=== PATIENT | female | born 1985 | race Caucasian/White ===

== ENCOUNTER 2025-03-26 00:29 | Day surgery (SDC) | payer OTHER, SELFPAY ==
--- OUTSIDE RECORDS SUMMARY | 2015-07-24 12:30 | XMS_ITS | Continuity of Care Document ---
Author Organization [facility] Address [address] [place] [address] [address] [place] [address] Phone Care Team Providers Care Director Of Hemophilia Name Role Phone Zhen STRICKLAND, OTR/L, Amy Unavailable Unavail able Procedures Procedure Date OT EVALUATION THERAPEUTIC EXERCISES FUNC ACTIVITY HOT/COLD PACK Advance Directives Directive Yes / No Effective Date File Name No Information Encounters Encounter Description Practice Location Reason(s) For Visit Diagnoses Date Provider Providers Copied on Encounter [facility], [address], [place], [place], [id number], [place] tel:[phone] [place] Pain in left wrist Zhen Reyes. [address] [facility], [address], [place], [address], [place]. tel:[phone] Referring Provider: Andrew Kang [address], [place], [address]. tel:[phone] Family History Family Member Type Diagnosis Age At Onset No Information Payers Payer name Insurance type Covered constitution party ID Authorjessicaa donellglenn(s) [facility] [id number] Social History Type Description Quantity Date Captured Comments Sex Female Smoking Status No Information Chief Complaint And Reason For Visit No Information Reason For Referral Reason For Referral No Information History Of Present Illness Encounter Date Complaint History Of Prese nt Illness No Information Functional Status Date Functional Assessmen t No Information Instructions Date Instruction Additional Infor mation No Information Assessments Type Assessment Date No Information Patient Care Teams Name Effective Dates (start - stop) Status Members No Information
--- NOTE | 2025-03-15 12:01 | SUR.PREOP ---
[facility] has started construction of its new state of the art ER which will open Spring 2026. With this, we anticipate parking may be a challenge for some our surgical patients and families. Parking spaces are limited but are available for all Surgical, obstetrics, and ER patients sharing this lot. If you arrive and find you are having a hard time finding a parking space, please note that we understand the challenges, please drive around the hospital and park near Hospital Entrance 1. When you enter this entrance, you can ask a volunteer to direct or take you back to the surgical waiting area to check in. We appreciate everyone?s understanding of these expected challenges while we build for your future. Report to the Outpatient Waiting Room, entrance under the green pavilion located off [address], at time _6am on date _03/26/25 . Planned Procedure Time: _730am .? Time changes happen often and if your time is changed the preop area will call you the afternoon before. - You and your visitor will be asked to self-screen and do not enter if you have any COVID symptoms. Please call surgeon if you need to reschedule. - A mask is optional within the hospital at this time. Patients may have clear liquids (water, carbonated beverages, clear teas, apple juice) until 3 hours prior to surgery with a maximum of 20 ounces. - No food from midnight until time of surgery and no smoking, or chewing tobacco (or any form of nicotine). No chewing gum, candy or mints. Take only the following medications with a SIP of water on the morning of surgery: __sertraline (Albuterol PRN)___ DO NOT STOP ANY OF YOUR OTHER PRESCRIPTION MEDICATIONS PRIOR TO SURGERY EXCEPT THE FOLLOWING Hold all vitamins and supplements for 3 days per anesthesiologist. Medications to discontinue per physician None____ Date to take last dose___n/a Please no make-up, nail serbian, hairspray, perfume, deodorant, or body powder the day of surgery.? - Jewelry must be removed prior to entering the operating room.? Rings and piercings that are not removed may be cut off. - The hospital will not accept responsibility for valuables.? - Please leave all valuables, including medications, at home the day of surgery. If you are going home after surgery, a licensed cdl bulk driver must drive you home.? - NO public transportation without another adult if you receive anesthesia. - We recommend that an adult stay with you for 24 hours following discharge. - We also recommend that you do not drive, make important decision, drink alcoholic beverages, or take any drugs that were not prescribed by your health care provider for at least 24 hours after your discharge time. Follow any additional instructions given to you from your surgeon. Telephone instructions given to __Linda and asked if any additional questions and then verbalized understanding. Patient advised to call surgeon office or pre surgery nurse liaison [phone] if any additional questions.
[2025-03-15 12:23] VITALS: BMI 25.7
[2025-03-26] VITALS (8 sets, daily range): BP systolic 90–113; BP diastolic 52–72; PULSE 60–79; RESP 10–16; TEMP 36.1–36.2; O2SAT 99–100; BMI 25.9
--- OUTSIDE RECORDS SUMMARY | 2025-03-26 00:31 | XMS_ITS | Encounter Summary ---
Author Organization [facility] Address [address] [place] [address] Care Team Providers Care Fire Alarm Operator Name Role Phone Dottie Rubio MD Primary Care Provider [phone]- [phone] Encounter Details Date Type Department Care Team (Late st Contact Info) Description 07/13/2022 Posh Eyest Message Enc [facility] Multispecialty Care - [facility] [address] [facility], [address] [place] [address] Kain Roy MD [address] [place] [address] MRI Orders Social History Tobacco Use Types Packs/Day Years Used Date Smoking Tobacco: Never Smokeless Tobacco: Never Alcohol Use Standard Drinks/Week Comments Yes 1.7 (1 standard drink = 0.6 oz p ure alcohol) social PHQ-2 Answer Date Recorded Patient Health Questionnaire-2 Score 0 06/21/2022 Comments Unknown Sex and Gender Information Value Date Recorded Sex Assigned at Not on file Legal Sex Female 6:23 PM CDT Gender Identity Not on file Sexual Orientation Not on file COVID-19 Exposure Response Date Recorded In the last 10 days, have yo u been in contact with someone who was confirmed or suspected to have Coronavirus/COVID-19? No / Unsure 06/21/2022 1:29 PM ROBOTIC TECHNICIAN documented as of this encounter Plan of Treatment Upcoming Encounters Date Type Department Care Team (Late st Contact Info) Description 06/18/2025 2:40 PM ROBOTIC TECHNICIAN Office Visit [facility] Multispecialty Care - [facility] [address] [facility], [address] [place] [address] Kain Roy MD [address] [place] [address] documented as of this encounter Visit Diagnoses Not on filedocumented in this encounter Care Teams Fire Alarm Operator Relationship Specialty Start Date End Date Dottie Rubio MD PCP - General FAMILY PRACTICE 12/17/21 documented as of this encounter
--- OUTSIDE RECORDS SUMMARY | 2025-03-26 00:31 | XMS_ITS | Clinical Summary ---
Author Organization [facility] Address [address], [place] [address] Phone Care Team Providers Care Retail Sales Vitamin Consultant Name Role Phone Provider, None Primary Care Provider Unavailabl e Allergies Active Allergy Reactions Criticality Noted Date Comments Lamotrigine Hives,Rash Medications ALPRAZolam (XANAX) 0.25 MG TabletIndicatio ns:once a day Indications: once a day Active clonazePAM (KLONOPIN) 0.5 MG Tablet Active Methylphenidate HCl (RITALIN LA) 20 MG CAPSULE SR 24 HRIndications:2 in am for 40am and 1 tab in the pm for 20mg equallying 60mg daily Indications: 2 in am for 40am and 1 tab in the pm for 20mg equallying 60mg daily Active glycopyrrolate (ROBINUL) 1 MG TabletIndicatio ns:once a day Indications: once a day Active DRYSOL 20 % Solution 5 Active FINACEA 15 % Gel 5 Active buPROPion SR (WELLBUTRIN SR) 150 MG TABLET SR 12 HR 5 Active VYVANSE 10 MG Capsule 5 Active venlafaxine (EFFEXOR-XR) 75 MG CAPSULE SR 24 HR 5 Active ARIPiprazole (ABILIFY) 5 MG Tablet Take 5 mg by mouth daily. Active TECFIDERA 240 MG CAPSULE DELAYED RELEASE TAKE ONE CAPSULE (240MG) ORALLY TWICE A DAY. MAY TAKE WITH FOOD. DO NOT CUT OR CHEW CAPSULES. DISCARD 90 DAYS AFTER OPENING. STORE IN ORIGIN 60 Cap 4 7 Active Active Problems Problem Noted Date Diagnosed Date Medication monitoring encounter 05/28/2015 Tremor 05/28/2015 Asthma Autistic disorder Bipolar disorder Relapsing remitting multiple sclerosis Family History Medical History Relation Name Comments No Known Problems Brother No Known Problems Father No Known Problems Maternal Grandfather No Known Problems Maternal Grandmother No Known Problems Mother No Known Problems Paternal Grandfather No Known Problems Paternal Grandmother Autism Sister CELE Relation Name Status Comments Brother Alive Father Alive Maternal Grandfather Maternal Grandmother Mother Alive Paternal Grandfather Paternal Grandmother Sister CELE Alive Social History Tobacco Use Types Packs/Day Years Used Date Smoking Tobacco: Never Smokeless Tobacco: Never Tobacco Cessation:Counseling Given: Yes Alcohol Use Standard Drinks/Week Comments Yes 0 (1 standard drink = 0.6 oz pur e alcohol) RARELY Sexually Active Control Partners Comments Yes Male Comments No Sex and Gender Information Value Date Recorded Sex Assigned at Not on file Legal Sex Female 9:34 PM CDT Gender Identity Not on file Sexual Orientation Not on file Last Filed Vital Signs Vital Sign Reading Time Taken Comments Blood Pressure 120/80 12/05/2015 8:23 AM CDT Pulse 85 12/05/2015 8:23 AM CDT Temperature 35.7 C (96.2 F) 12/05/2015 8:23 AM CDT Respiratory Rate - - Oxygen Saturation 95% 12/05/2015 8:23 AM CDT Inhaled Oxygen Concentration - - Weight 61.7 kg (136 lb) 12/05/2015 8:23 AM CDT Height 154.9 cm (5' 1) 12/05/2015 8:23 AM CDT Body Mass Index 25.7 12/05/2015 8:23 AM CDT Plan of Treatment Health Maintenance Due Date Last Done Comments Hepatitis C Virus (HCV) Screening 1987 TdaP Immunization 1987 Hepatitis B Immunization (1 of 3 - 19+ 3-dose series) 09/16/2006 Pneumococcal Immunization Co mbined (1 of 2 - PCV) 09/16/2006 Pap Smear 09/16/2008 Human Papillomavirus (HPV) Immunization (1 - 3-dose SCDM series) 09/16/2014 Cervical Cancer Screening (CCS) 09/16/2017 HPV/Cotest 09/16/2017 Influenza Immunization (#1) 2025 SARS-COV-2 Immunization (2023-25 season) 2025 Respiratory Syncytial Virus (RSV) Immunization (Adult) (1 - 1-dose 75+ series) 09/16/2062 Meningococcal Immunization (ACWY) Aged Out No longer eligible based on patient's age to complete this topic Rotavirus Immunization Aged Out No lo nger eligible based on patient's age to complete this topic Insurance [facility] Care Teams Retail Sales Vitamin Consultant Relationship Specialty Start Date End Date Provider, None [place] PCP - General 05/28/15
--- OUTSIDE RECORDS SUMMARY | 2025-03-26 00:31 | XMS_ITS | Encounter Summary ---
Author Organization [facility] Address [facility] [place] [address] Care Team Providers Care Instructional Coach Name Role Phone Dottie Rubio MD Primary Care Provider +1- [phone] Encounter Details Date Type Department Care Team (Late st Contact Info) Description 12/01/2023 Rhythm NewMediat Message Enc [facility] Multispecialty Care - [facility] [address] [facility], [address] [place] [phone] Kain Roy MD [address] [place] [address] IVF Beginnings Social History Tobacco Use Types Packs/Day Years Used Date Smoking Tobacco: Never Smokeless Tobacco: Never Comments:Smoked as a teen. I was dumb. Alcohol Use Standard Drinks/Week Comments Yes 1 (1 standard drink = 0.6 oz pure alcohol) Social drinker. Maybe have a drink or 2 on the weekends. PHQ-2 Answer Date Recorded Patient Health Questionnaire-2 Score 0 06/21/2022 Comments Unknown Sex and Gender Information Value Date Recorded Sex Assigned at Not on file Legal Sex Female 6:23 PM CDT Gender Identity Not on file Sexual Orientation Not on file documented as of this encounter Progress Notes * Aminah Joshua MA - 12/01/2023 1:57 PM CDT Informed pt. Of Dr. Benavides recommendations documented in this encounter Plan of Treatment Upcoming Encounters Date Type Department Care Team (Late st Contact Info) Description 06/18/2025 2:40 PM FILLER MACHINE OPERATOR Office Visit [facility] Multispecialty Care - [facility] [address] [facility], [address] [place] [address] Kain Roy MD [address] [place] [address] documented as of this encounter Visit Diagnoses Not on filedocumented in this encounter Care Teams Instructional Coach Relationship Specialty Start Date End Date Dottie Rubio MD PCP - General FAMILY PRACTICE 12/17/21 documented as of this encounter
--- OUTSIDE RECORDS SUMMARY | 2025-03-26 00:31 | XMS_ITS | Clinical Summary ---
Author Organization [facility] Address [address] [place] [address] Care Team Providers Care Supervisor Knitting Name Role Phone Dottie Rubio MD Primary Care Provider +1- [phone] Allergies Active Allergy Reactions Criticality Noted Date Comments Lamotrigine Rash,Hives,Redness High 07/07/2015 Medications dimethyl fumarate (TECFIDERA) 240 MG CAPSULE DELAYED RELEASE capsule 2 Active doxycycline monohydrate 100 MG capsule Take 100 mg by mouth daily with breakfast. 2 Active Glycopyrrolate 2 MG Tab Take 1 tablet by mouth daily. Active OXcarbazepine (TRILEPTAL) 300 MG tablet Take 0.5 tablets (150 mg total) by mouth once. Active albuterol sulfate HFA 108 (90 Base) MCG/ACT inhaler INHALE 2 PUFFS EVERY 4 HOURS NEEDED FOR WHEEZING OR SHORTNESS OF BREATH 3 Active ALPRAZolam (XANAX) 0.25 MG tablet Indications: once a day Active methylphenidate LA (RITALIN LA) 20 MG 24 hr capsule Take 1 capsule (20 mg total) by mouth every morning. Active dimethyl fumarate (TECFIDERA) 240 MG CAPSULE DELAYED RELEASE capsuleIndicatio ns:MS (multiple sclerosis) take 1 capsule by mouth 2 times a day 180 capsule 3 4 Active Additional Information Patient not taking.Reported on 12/18/2024 sertraline (ZOLOFT) 25 MG tablet Take 2 tablets (50 mg total) by mouth daily. 4 Active Azelaic Acid 15 % gel Apply topically as needed. 5 Active Clindamycin Phos-Benzoyl Perox 1.2-3.75 % Gel 5 Active Docusate Sodium (DSS) 100 MG Cap TAKE 1 CAPSULE (100 MG) BY MOUTH TWICE A DAY WITH GLASS OF WATER 5 Active lurasidone (LATUDA) 20 MG tablet 5 Active NIFEdipine ER (ADALAT CC) 30 MG 24 hr tablet Take 1 tablet (30 mg total) by mouth daily. 5 10/18/19 26 Active BOTOX 100 units injection 4 Active MV-Min-Fe Fum-FA-DHA ( MULTI +DHA) 27-0.8-250 MG Cap Take by mouth Active sertraline (ZOLOFT) 100 MG tablet 5 Active sertraline (ZOLOFT) 50 MG tablet TAKE 1 TABLET BY MOUTH EVERY DAY EVERY EVENING Active lisdexamfetamine (VYVANSE) 40 MG capsule Take 1 capsule (40 mg total) by mouth daily. Active Active Problems Problem Noted Date Diagnosed Date MS (multiple sclerosis) 12/20/2022 Encounters Date Type Department Care Team Description 01/21/2025 Telephone [facility] Multispecialty Care - [address], [address] [place] [address] Kain Roy MD Results from Last 3 Months Family History Medical History Relation Comments Basal cell carcinoma Adoptive mother Autism Half-sister Relation Status Comments Adoptive mother Alive Father Alive Half-sister Alive Mother Social History Tobacco Use Types Packs/Day Years Used Date Smoking Tobacco: Never Smokeless Tobacco: Never Comments:Smoked as a teen. I was dumb. Alcohol Use Standard Drinks/Week Comments Not Currently 2 (1 standard drink = 0.6 oz pure alcohol) Social drinker. Maybe have a drink or 2 on the weekends. PHQ-2 Answer Date Recorded Patient Health Questionnaire-2 Score 0 06/21/2022 Comments No Sex and Gender Information Value Date Recorded Sex Assigned at Not on file Legal Sex Female 6:23 PM CDT Gender Identity Not on file Sexual Orientation Not on file Last Filed Vital Signs Vital Sign Reading Time Taken Comments Blood Pressure 119/80 12/18/2024 2:26 PM CDT Pulse 84 12/18/2024 2:26 PM CDT Temperature 37 C (98.6 F) 12/18/2024 2:26 PM CDT Respiratory Rate 16 12/18/2024 2:26 PM CDT Oxygen Saturation 100% 12/18/2024 2:26 PM CDT Inhaled Oxygen Concentration - - Weight 63.5 kg (140 lb) 12/18/2024 2:26 PM CDT Height 152.4 cm (5') 12/18/2024 2:26 PM CDT Body Mass Index 27.34 12/18/2024 2:26 PM CDT Plan of Treatment Upcoming Encounters Date Type Department Care Team (Late st Contact Info) Description 06/18/2025 2:40 PM SACK FILLER Office Visit [facility] Multispecialty Care - [facility] [address] [facility], [address] [place] [address] Kain Roy MD [address] [place] [address] Health Maintenance Due Date Last Done Comments Annual Physical 09/16/1990 DTaP, Tdap and Td Vaccines ( 1 - Tdap) 09/16/2006 Hepatitis B Vaccines (1 of 3 - 19+ 3-dose series) 09/16/2006 HPV Vaccines (1 - 3-dose SCD M series) 09/16/2014 Cervical Cancer Screening Pa p with HPV Testing (Age 30 to 64) Every 5 Years 09/16/2017 PHQ-2 (Physician [place]) 06/06/2024 COVID-19 Vaccine (3 - 2024-2 6 season) 2025 09/05/2020, 08/01/2020 Influenza Adult (#1) 2025 Cervical Cancer Screening Pa p Smear (Age 30 to 64) Every 3 Years 03/07/2026 03/07/2023 Cervical Cancer Screening wi th HPV 03/07/2026 Hepatitis C Completed 06/25/2023 Hepatitis A Vaccines Aged Out No long er eligible based on patient's age to complete this topic Meningococcal B Vaccine Aged Out No l onger eligible based on patient's age to complete this topic Meningococcal Vaccine Aged Out No jerry baljit eligible based on patient's age to complete this topic Pneumococcal Vaccine: Pediatrics (0 to 5 Years) and At-Risk Patients (6 to 49 Years) Aged Out No longer eligible b ased on patient's age to complete this topic RSV Immunizations Under 20 Months Aged Out No longer eligible b ased on patient's age to complete this topic Procedures Procedure Name Priority Date/Time Associated Diagnosis Comments MRI THOR SPINE WWO CON Routine 01/21/2025 12:00 AM CDT MS (multiple sclerosis) MRI BRAIN WWO CON Routine 01/17/2025 12: 00 AM CDT MS (multiple sclerosis) MRI CERV SPINE WWO CON Routine 01/15/2025 12:00 AM CDT MS (multiple sclerosis) HEPATITIS C ANTIBODY W/RFX TO HCV RNA Routine 06/25/2023 9:43 AM SACK FILLER from Last 3 Months or Most Recently Relevant to Health Maintenance Results * MRI THOR SPINE WWO CON (01/21/2025 12:00 AM CDT) Anatomical Region Laterality Modality Spine Magnetic Resonan ce 01/21/2025 us Kain Roy MD MRI Final Res ult * MRI BRAIN WWO CON (01/17/2025 12:00 AM CDT) Anatomical Region Laterality Modality Head Magnetic Resonan ce 01/17/2025 us Kain Roy MD MRI Final Res ult * MRI CERV SPINE WWO CON (01/15/2025 12:00 AM CDT) Anatomical Region Laterality Modality Spine Magnetic Resonan ce 01/15/2025 us Kain Roy MD MRI Final Res ult * HEPATITIS C ANTIBODY W/RFX TO HCV RNA (06/25/2023 9:43 AM SACK FILLER) HEPATITIS C AB NON-REACT BALAJI NON-REACT BALAJI [employer] [facility] Comment: HCV antibody was non-reactive. There is no laboratory evidence of HCV infection. In most cases, no further action is required. However, if recent HCV exposure is suspected, a test for HCV RNA (test code 92649) is suggested. For additional information please refer to http://education.Queryly/faq/GWL60r4 (This link is being provided for informational/ educational purposes only.) 06/25/2023 9:43 AM SACK FILLER 06/25/2023 9:48 AM SACK FILLER Narrative [employer] - KELBY ORDERS - 06/29/2023 10:29 AM SACK FILLER FASTING:YES FASTING: YES Resulting Agency Comment Performing Organization Information: Site ID: [id number] Name: [employer] Address: [address] [place] [id number] Director: Aaron Luong MD us Kain Roy MD LABORATORY Final Res ult [employer] Patricia DUNN [employer] [facility] [id number] [place] [address] from Last 3 Months or Most Recently Relevant to Health Maintenance Insurance [employer] [facility] Care Teams Supervisor Knitting Relationship Specialty Start Date End Date Dottie Rubio MD PCP - General FAMILY PRACTICE 12/17/21
--- OUTSIDE RECORDS SUMMARY | 2025-03-26 00:31 | XMS_ITS | Encounter Summary ---
Author Organization [facility] Address [facility] [place] [address] Care Team Providers Care Senior Quality Assurance Engineer Name Role Phone Dottie Rubio MD Primary Care Provider +1- [phone] Encounter Details Date Type Department Care Team (Late st Contact Info) Description 08/31/2023 MyChart Message [facility] [address] [facility], [address] [place] [phone] Kain Roy MD [address] [place] [address] MRI Disc Social History Tobacco Use Types Packs/Day Years [...] on file documented as of this encounter Plan of Treatment Upcoming Encounters Date Type Department Care Team (Late st Contact Info) Description 06/18/2025 2:40 PM MILK RECEIVER TANK TRUCK Office Visit [facility] Mult[facility]pecialty Care - [facility] [address] [facility], [address] [place] [address] Kain Roy MD [address] [place] [address] documented as of this encounter Visit Diagnoses Not on filedocumented in this encounter Care Teams Senior Quality Assurance Engineer Relationship Specialty Start Date End Date Dottie Rubio MD PCP - General FAMILY PRACTICE 12/17/21 documented as of this encounter
--- OUTSIDE RECORDS SUMMARY | 2025-03-26 00:31 | XMS_ITS | Encounter Summary ---
Author Organization [facility] Address [facility] [place] [address] Care Team Providers Care Addresser Name Role Phone Dottie Rubio MD Primary Care Provider +1- [phone] Encounter Details Date Type Department Care Team (Latest Contact Info) Description 07/07/[address] [facility] [address] [facility], [address] [place] [address] Kain Roy MD [address] [place] [address] Medication Refill Social History Tobacco Use Types Packs/Day Years [...] st Contact Info) Description 06/18/2025 2:40 PM WIND TURBINE BLADE REPAIR TECHNICIAN Office Visit [facility]pec[facility] Care - [facility] [address] [facility], [address] [place] [address] Kain Roy MD [address] [place] [address] documented as of this encounter Visit Diagnoses Not on filedocumented in this encounter Care Teams Addresser Relationship Specialty Start Date End Date Dottie Rubio MD PCP - General FAMILY PRACTICE 12/17/21 documented as of this encounter
--- OUTSIDE RECORDS SUMMARY | 2025-03-26 00:32 | XMS_ITS | Clinical Summary ---
Author Organization [facility] at the [facility] [place] Address [address] [place] [address] Care Team Providers Care Target Network Analyst Name Role Phone Dottie Rosa MD Primary Care Provider [phone] Allergies Active Allergy Reactions Criticality Noted Date Comments Lamotrigine Fever,Redness,Hives,Rash High 07/07/2015 Medications vit 43-[id number]-d escobar 27mg iron- 800 mcg-250 mg capsule Take by mouth Active albuterol HFA (ProAir HFA) 90 mcg/actuation inhaler Inhale 2 puffs every 4 (four) hours as needed for wheezing or shortness of breath 18 g 1 5 07/19/19 26 Active sertraline (ZOLOFT) 100 mg tablet 5 Active azelaic acid 15 % gel Apply topically as needed 5 Active clindamycin-chanel zoyl peroxide 1.2 %(1 % base) -3.75 % gel with pump 5 Active docusate sodium (COLACE) 100 mg capsule TAKE 1 CAPSULE (100 MG) BY MOUTH TWICE A DAY WITH GLASS OF WATER 60 capsule 5 Active lisdexamfetamin e (VYVANSE) 40 mg capsule Take 1 capsule (40 mg total) by mouth daily 5 Active lurasidone (LATUDA) 20 mg tablet Take 1 tablet (20 mg total) by mouth daily 5 Active Active Problems Problem Noted Date Diagnosed Date care following delivery 10/04 Overview (10/16/2024): 10/14/24, POD#1 (Da Silva) S/p pCS which was complicated by delayed intra-abdominal hemorrhage requiring take-back exploratory laparotomy EBL 2455 cc (355 cc from original CS), Hgb 11.9 > 9.8 > 10.0 > 7.7 >> 10.9 > 10.2 S/p 3u pRBC, 1u Plt, 1u FFP 2100 cc of clot and blood evacuated from abdominal cavity during EL A(+), Rubella immune Vital signs reviewed and notable for elevated blood pressures and bradycardia EKG: sinus bradycardia, avoid beta blockers if possible See PreE problem Elevated D-dimer: 5900, LE duplex US ordered MP asthma: continue daily scheduled inhalers, aggressive IS Anxiety/Depression - continue zoloft RR Multiple Sclerosis, Optic neuritis - has plan to restart medications with neurologist, for flares IV Solu-Medrol Tolerating PO - close monitoring for ileus Guillen in place with more than adequate UOP - plan void trial today MOF: undecided, baby getting donor milk in the NICU MOC: declines, IVF VTE ppx: The patient has the following MAJOR risk factors PPH (EBL >/=1000) requiring blood transfusion or procedure (D&C or IR) and prolonged labor OR antepartum admission >72h immediately prior to delivery and the following MINOR risk factors BMI 30-39, delivery, preeclampsia, and age >/= 35. enoxaparin 40 mg daily ordered for VTE prophylaxis. Dispo: Continue routine postoperative care. 10/15/24, POD#2 (LIBERTAD) S/p pCS, complicated by intra-abdominal hemorrhage and exploratory laparotomy EBL 2455 cc Hgb 11.9 > 9.8 > 10.0 > 7.7 >> 10.9 > 10.2 > 9.4 S/p 3u pRBC, 1u Plt, 1u FFP Tolerating PO iron A(+), Rubella immune Vital signs reviewed and normal - see other problem for BPs Elevated D-dimer: 5900, LE duplex US negative MP asthma: continue daily scheduled inhalers, aggressive IS Anxiety/Depression - continue zoloft RR Multiple Sclerosis, Optic neuritis - has plan to restart medications with neurologist, for flares IV Solu-Medrol Tolerating PO - close monitoring for ileus Guillen d/c yesterday, voiding spontaneously, passing flatus frequently MOF: formula, baby getting donor milk in the NICU MOC: declines, IVF VTE ppx: The patient has the following MAJOR risk factors PPH (EBL >/=1000) requiring blood transfusion or procedure (D&C or IR) and prolonged labor OR antepartum admission >72h immediately prior to delivery and the following MINOR risk factors BMI 30-39, delivery, preeclampsia, and age >/= 35. enoxaparin 40 mg daily ordered for VTE prophylaxis. Dispo: Continue routine postoperative care. 10/15/2024, POD# 3 (LIBERTAD): Pt doing well - desires discharge home today VSS, Afebrile - see other problem for BPs EBL 2455 cc; hgb has stabilized at 9.1, tolerating PO iron Elevated D-dimer: negative dopplers, no further work up at this time. Reviewed VTE/DVT warning signs with patient. Received enoxaparin 40 mg daily while inpatient MP asthma: discharge home with scheduled inhalers RR Multiple Sclerosis: has appointment with neurologist this week to initiate plan Anxiety/Depression: continue sertraline, plan mood check at post op visit Normal exam: tolerating PO, spontaneously voiding, passing flatus, no BM, ambulating independently MOF: formula MOC: declines, IVF Dispo: desires discharge home. discharge education provided: reviewed s/s of infection, VTE/DVT, bleeding, pre eclampsia and depression/anxiety. Follow up 2 days for BP check, 1 week for incision/mood check and 6 week for routine visit. Acute blood loss anemia 10/14/2024 Overview (10/14/2024): See problem. Post-operative bleeding requiring take-back for exploratory laparotomy. Blood products transfused. CANDICE (acute kidney injury) 10/14/2024 Overview (10/14/2024): In the setting of PreE w/ SF, hypotension, hypovolemia, PPH Acute bronchitis due to other specified organism s 10/03/2024 Anxiety and depression 05/22/2024 Assessment & Plan (10/03/2024 8:42 PM CDT): Chronic Stable Cont celexa Mass of right axilla 01/05/2024 Assessment & Plan (01/05/2024 2:13 PM CDT): Patient states there since she was a teenager but it has started to flare up recently. US ordered. Does not appear to be infected at this time. 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 Assessment & Plan (12/14/2019 2:20 PM CDT): Stable Cont robinul Moderate persistent asthma without complication 07/08/2017 Assessment & Plan (06/01/2023 5:44 AM RECRUITING MANAGER): Chronic Stable Con brezri ADD (attention deficit disorder) without hyperac tivity 06/21/2017 Assessment & Plan (06/01/2023 5:44 AM RECRUITING MANAGER): Chronic Stable Cont ritalin Assessment & Plan (12/14/2019 2:19 PM CDT): Stable Cont ritalin Assessment & Plan (04/08/2019 5:59 PM RECRUITING MANAGER): Stable Cont vyvanse Multiple sclerosis 10/30/2013 Overview (09/16/2017): Description: 28 y/o F w/ h/o optic neuritis and lesions on MRI c/w a new diagnosis of MS. Impression: Today Linda has expressed that she does not believe she holds the diganosis. We discussed her testing/symptoms in detail and why this supports the diagnosis. After discussing these things we turned to her treatment options. At this point she would like to try Copaxone. Because patient feels comfortable with injections and does not want to actively prevent at this time in her life, I believe this is a good choice for her. Enrollment form completed today. At the end of the visit she seemed to agree more with her diagnosis. 10/30/13 Assessment & Plan (09/16/2020 10:42 AM CDT): Patient remains on Tecfidera for immunosuppressant treatment of her multiple sclerosis. Contemporary MRI demonstrates no active demyelination. She will continue on Tecfidera as previously prescribed and I will see her back in 1 year. Assessment & Plan (06/24/2020 9:27 AM RECRUITING MANAGER): Patient is a former patient of [facility] being treated for multiple sclerosis with dimethyl fumarate. She continues on dimethyl fumarate 240 mg b.i.d. with good tolerability and only occasional migratory paresthesia as her continuing symptoms. She previously had optic neuritis when her diagnosis was originally established. She exhibits a normal neurological examination. I have renewed her dimethyl fumarate as previously prescribed. She has not had an MRI since 2018 so I will be obtaining an MRI brain with and without contrast to screen for her current status of primary demyelination. It will also be done to rule out potential complicating lesions from her immunosuppression. Will also obtain a CBC, AST, and ALT to screen for potential neutropenia and liver dysfunction associated with continued dimethyl fumarate usage. I will see her back in the office in 3 months time for reassessment. Anaclitic depression 10/30/2013 Overview (09/16/2017): Description: Currently on sertraline. Patient has a psychiatrist. Impression: From patient's description this is poorly controlled. 10/30/13 Anxiety 10/25/2013 Optic neuritis 10/24/2013 Overview (09/16/2017): Description: OS, began 09/2013. Had central scotoma, NL OCT. Abnormal brain scan 10/24/2013 Resolved Problems Problem Noted Date Diagnosed Date Resolved Date premature rupture of membranes (PPROM) with onset of labor after 24 hours of rupture in third trimester, antepartum 10/10/2024 0 10/19/2024 Overview (10/12/2024): 10/10/2024 1152 (CZ) 39 yo @ 33w4d who presents with PPROM. Her is complicated by IVF , anxiety and depression (Zoloft), MP Asthma (PRN albuterol, AMA (last EFW 28%), RR multiple sclerosis, optic neuritis, and velamentous cord insertion. Mild range blood pressures noted on admission. A+, Rubella Immune Hgb: 11.9 Reactive tracing GBS Unknown: Collected BMZ x1 dose Latency antibiotics initiated. SVE 0.5/0/-3 Reports some cramping with contractions, reports as mild. Continue expectant management until goal range of 34 weeks. Neonatology consult placed 10/11/2024 0830 (CZ) VSS, afebrile Periods of Category 2 tracing with prolonged Late decels after a contractions. Resolves to category 1 with position changes. Reviewed with Dr. Rose, plan to order BPP. GBS unknown: collected 10/10 BMZ x2 Latency antibiotics continue SVE: Deferred Denies cramping/contractions. Magnesium and Nifedipine held - see other problem. Plan for primary @ 34 weeks. 10/09/2024, 1000 (JF): Pt doing well overall, feeling increased anxiety secondary to situation - hydroxyzine ordered for PRN Hgb: 11.9 > 9.8 - no bleeding, pt reports pink tinged fluid occasionally Repeat CBC and coags at noon wellbeing: BPP (10/11) 6/10, (/) 8/8, continuous monitoring - periods of minimal, no decelerations Pt requesting to shower and take walk - discussed overall reassurance with BPP. Ok to shower and with reactive NST can consider 10 -15 min walk GBS unknown Continue latency antibiotics SVE: deferred, denies contractions Continue plan for pCS tomorrow at 0830 - NPO at midnight, restart MgSO4 at 0630 Severe pre-eclampsia in third trimester 10/10/2024 01/02/2025 Overview (10/16/2024): 10/10/2024 (CZ) Sustained severe range blood pressures noted. Pulse 56 - hydralazine protocol ordered. Repeat blood pressure before spotting moderate range. Magnesium initiated 4 g bolus 2 g maintenance Nifedipine 30 mg XL initiated Labs: Plt 126, CR 1.05, Uric Acid 7.6, PCR 178.9 Ordered daily 10/11/2024 (CZ) VSS, afebrile Patient reported shortness of breath and chest heaviness overnight. Magnesium and Nifedipine on hold. Vitals remain stable. Labs: Plt 126 > 177, CR 1.05 Ordered daily 10/12/2024, (JF): VSS - MR BP x 1 this morning, otherwise all normotensive. Low threshold to restart PO medication Plan to restart MgSO4 tomorrow morning or sooner if indicated Labs: LFTs normal, Cr: 1.05 > 1.0. Continue daily Asymptomatic 10/14/2024, POD#1 (Avinash) Severe PreE with evidence of pulmonary edema on 10/13 AM, see other notes for further details With blood product transfusions, close monitoring of volume status S/p Lasix 40 mg and then 20 mg Current anti-hypertensive regimen: 30 mg XL nifedpine Last spottin/10 afternoon with hydralazine Labs: Plt: 141 > 188 > 137 > 118 > 133 Cr: 1.0 > 1.4 > 1.3 > 1.19 LFTs: / > 48/29 > 69/38 Magnesium held in the setting of hemorrhage, pulmonary edema 10/15/2024, POD#2 (JF): BPs largely normotensive this AM, MR x 1 Asymptomatic Nifedipine XL 30 mg daily Last spot treatment: 10/13 - see above Labs Plt: 141 > 188 > 137 > 118 > 133 > 176 Cr: 1.0 > 1.4 > 1.3 > 1.19 > 1.10 LFTs: 30/25 > 48/29 > 69/38 > 36/22 Magnesium held in the setting of hemorrhage, pulmonary edema - s/p Lasix 40 mg and 20 mg , POD#3 (JF): BPs normotensive Asymptomatic Nifedipine XL 30 mg daily Labs: normal Plt: 204 Cr: 1.08 LFTs 36/24 33 weeks gestation of 10/10/2024 10/19/2024 Abnormal glucose affecting 09/06/2024 10/19/2024 Overview (09/06/2024): 1 hr (08/31/24): 143 Plan: [] Wants to proceed with 1-2 weeks of fingerstick checks instead of 3 hr gtt, plans to discuss with OB 4/18 Assessment & Plan (09/06/2024 3:32 PM CDT): 1 hr (08/31/24): 143 Plan: [] Wants to proceed with 1-2 weeks of fingerstick checks instead of 3 hr gtt, plans to discuss with OB 4/18 Multiple sclerosis affecting in third trimester 06/21/2024 10/19/2024 Overview (08/02/2024): Type: Relapsing remitting multiple sclerosis. Diagnosed: 2013 Last flare: 2013 at diagnosis Typical flare symptoms: optic neuritis Neurologist: Kain Roy, Last visit: 06/2023, Next visit: 07/06/24 Current regimen: Prior to on dimethyl fumarate (started in 2013), which was discontinued prior to starting infertility treatments in November 2023 S/p counseling Plan: [] Serial growth ultrasounds every 4 weeks starting at 24 weeks [] Close follow up with neurology this and [] Anesthesia consultation 3rd trimester Assessment & Plan (10/04/2024 10:29 AM CDT): Type: Relapsing remitting multiple sclerosis. Diagnosed: 2013 Last flare: 2013 at diagnosis Typical flare symptoms: optic neuritis Neurologist: Kain Roy, Last visit: 06/2023, Next visit: 07/06/24 Current regimen: Prior to on dimethyl fumarate (started in 2013), which was discontinued prior to starting infertility treatments in November 2023 S/p counseling Plan: [] Serial growth ultrasounds every 4 weeks starting at 24 weeks [] Close follow up with neurology this and [] Anesthesia consultation 3rd trimester Assessment & Plan (09/06/2024 3:31 PM CDT): Plan: [] Serial growth ultrasounds every 4 weeks starting at 24 weeks [] Close follow up with neurology this and [] Anesthesia consultation 3rd trimester Assessment & Plan (08/02/2024 1:40 PM RECRUITING MANAGER): Plan: [] Serial growth ultrasounds every 4 weeks starting at 24 weeks [] Close follow up with neurology this and [] Anesthesia consultation 3rd trimester RESOLVED 08/02/24 - Suspected vasa previa affecting 06/21/2024 10/19/2024 Overview (08/02/2024): S/p counseling RESOLVED 08/02/2024 Assessment & Plan (08/02/2024 1:39 PM RECRUITING MANAGER): S/p counseling RESOLVED 08/02/2024 Velamentous insertion of umb ilical cord in second trimester 06/21/2024 10/04/2024 Overview (08/02/2024): We discussed that a velamentous cord insertion can be associated with IUGR and rarely, distress, delivery, and retained placenta. However the largest studies have not shown any association with adverse outcome when found in isolation. PLAN: -Serial growth ultrasounds per multiple sclerosis plan Assessment & Plan (08/02/2024 1:39 PM RECRUITING MANAGER): PLAN: -Serial growth ultrasounds per multiple sclerosis plan In vitro fertilization 06/21/202406/21 Overview (06/21/2024): In vitro fertilization (IVF) or assisted reproductive technologies (ART) comprise about 1-2% of pregnancies. risks associated with IVF include miscarriage, congenital anomalies specifically cardiac defects, placental disorders, gestational diabetes, section, delivery, growth restriction, and stillbirth. Plan: [x] ASA 81 mg at 12 weeks [] Specialized anatomic survey at 18-22 weeks - incomplete views today [] echocardiogram at 20-22 weeks (completed at [facility]) - scheduled [] 3rd trimester growth ultrasound [] Weekly testing at 36 weeks [] Consider risk reducing induction of labor at 39 weeks Supervision of high risk pre gnancy in second trimester 05/22/2024 10/19/2024 Overview (09/06/2024): [x] Co-management vs. [] Full M Care; [] Red Team [x] Blue Team Referring Provider: Sarah Betancur [phone] [] or Medicare Insurance [x] Dating Criteria: MIGUEL:11/24/24 [] Labs: Rh [A+], Ab [Neg], Rubella [Imm], HIV [Neg], HepBSAg [NR], HepBSAb [not done], HepBCAb [not done], RPR [NR], Hep C [NR], Varicella [not done], GC/CT [not done] [] Aneuploidy Screening: [] Carrier Screening: [] Hgb electrophoresis: [x] CBC/Hgb: 13.9/41.2/209 [] Early 1hr GTT (if indicated): A1c: 5.1 on 05/26/24 [x] UCx: negative [] Pap: [] LD ASA (if indicated): [] EPDS [ ]; PNBHS referral (if indicated): 2nd Trimester [x] Anatomy ultrasound: [] CBC/1hr gtt at 24-28wks: [] Rhogam at 28 wks (if Rh neg): A+, N/A 3rd Trimester [] CBC/HIV/RPR/T&S: [] GBS: [] GC/CT (if indicated): [] testing: weekly at 36 weeks (IVF, VCI) Counseling [] MOD: Anticipate at term [] Place of delivery: [facility] with primary OB [] Epidural: [] Accepts Blood Products: [] Stop ASA: [] MOC: [] Method of feeding: [] Electronic Wirer (specifically which provider): provided [phone] 09/06/2024 [] PP Depression Discussed: [] PP visits scheduled: Vaccines [] Flu Shot (Feb-May): [] COVID vaccine: [] Tdap (27-36wks): [] RSV vaccine (32-36wks): [] PP HPV vaccine counseling (<=26 yo): Assessment & Plan (10/04/2024 10:33 AM CDT): We will continue co-management with you and see her back in 4 weeks with a growth scan. Assessment & Plan (09/06/2024 3:30 PM CDT): 3rd Trimester [] CBC/HIV/RPR/T&S: [] GBS: [] GC/CT (if indicated): [] testing: weekly at 36 weeks (IVF, VCI) Counseling [] MOD: Anticipate at term [] Place of delivery: [facility] with primary OB resulting from in vitro fertilization 05/22/2024 10/19/2024 Overview (08/02/2024): In vitro fertilization (IVF) or assisted reproductive technologies (ART) comprise about 1-2% of pregnancies. risks associated with IVF include miscarriage, congenital anomalies specifically cardiac defects, placental disorders, gestational diabetes, section, delivery, growth restriction, and stillbirth. Plan: [x] ASA 81 mg at 12 weeks [x] Specialized anatomic survey at 18-22 weeks [x] echocardiogram at 20-22 weeks (completed at [facility]) - WNL 07/27 [] Growth ultrasounds per multiple sclerosis plan [] Weekly testing at 36 weeks [] Consider risk reducing induction of labor at 39 weeks Assessment & Plan (10/04/2024 10:31 AM CDT): In vitro fertilization (IVF) or assisted reproductive technologies (ART) comprise about 1-2% of pregnancies. risks associated with IVF include miscarriage, congenital anomalies specifically cardiac defects, placental disorders, gestational diabetes, section, delivery, growth restriction, and stillbirth. Plan: [x] ASA 81 mg at 12 weeks [x] Specialized anatomic survey at 18-22 weeks [x] echocardiogram at 20-22 weeks (completed at [facility]) - WNL 07/27 [] Growth ultrasounds per multiple sclerosis plan [] Weekly testing at 36 weeks [] Consider risk reducing induction of labor at 39 weeks Assessment & Plan (09/06/2024 3:31 PM CDT): Plan: [x] ASA 81 mg at 12 weeks [x] Specialized anatomic survey at 18-22 weeks [x] echocardiogram at 20-22 weeks (completed at [facility]) - WNL 07/27 [] Growth ultrasounds per multiple sclerosis plan [] Weekly testing at 36 weeks [] Consider risk reducing induction of labor at 39 weeks Assessment & Plan (08/02/2024 1:40 PM RECRUITING MANAGER): Plan: [x] ASA 81 mg at 12 weeks [x] Specialized anatomic survey at 18-22 weeks [x] echocardiogram at 20-22 weeks (completed at [facility]) - [facility] 07/27 [] Growth ultrasounds per multiple sclerosis plan [] Weekly testing at 36 weeks [] Consider risk reducing induction of labor at 39 weeks Advanced maternal age, primi , antepartum 05/21/2024 10/19/2024 Overview (06/21/2024): Risks of AMA include increased risk of genetic aneuploidy, miscarriage, preeclampsia, gestational diabetes, delivery, and delivery. PLAN: NIPT per primary OB Assessment & Plan (10/04/2024 10:32 AM CDT): Risks of AMA include increased risk of genetic aneuploidy, miscarriage, preeclampsia, gestational diabetes, delivery, and delivery. PLAN: NIPT per primary OB Well adult exam 05/03/2023 06/22/2024 Sore throat 01/27/2022 06/22/2024 Assessment & Plan (02/01/2022 6:20 AM CDT): Secondary to injury Is better No signs of injury Medication monitoring encounter 06/24/2020 06/22/2024 Assessment & Plan (09/16/2020 10:42 AM CDT): Patient has undergone CBC AST and ALT which are normal upon report reviews in screening for potential neutropenia and liver dysfunction associated with continued Tecfidera dosing. Assessment & Plan (06/24/2020 9:28 AM RECRUITING MANAGER): I will obtain a CBC, AST, and ALT for screening of potential neutropenia and liver dysfunction associated with continued dimethyl fumarate usage. In addition I will check an MRI of the brain to screen for her current activity of primary demyelination and to exclude alternate lesions which can be associated with complications from immunosuppression. Irregular menses 03/22/2019 08/02/2024 Assessment & Plan (04/08/2019 5:59 PM RECRUITING MANAGER): Order labs Refer to manager gyn Decreased libido 03/22/2019 08/02/2024 Assessment & Plan (04/08/2019 5:59 PM RECRUITING MANAGER): Order labs Refer to manager gyn Head revolving around 10/30/20132024 Overview (09/16/2017): Description: Present daily for the last several years. This is her biggest complaint at this time. No work up has been done at this time. Impression: Will do trial of meclazine per patient's request. Due to her description of her vertigo, I think that evaluation by ENT would be reasonable to ensure there is not an inner ear problem related to the vertigo. Consider vestibular rehab. 10/30/13 Blurring of visual image 10/30/2013 Overview (09/16/2017): Impression: Not related to her ON. Improved with glasses. I have asked her to talk with her body finisher about her options regarding bifocals since her feels wearing her normal glasses causes increased dizziness for her near vision. 10/30/13 Bronchial asthma 10/24/2013 08/02/2024 Immunizations Immunization Administration Dates Next Due Influenza, Unspecified 03/06/2024(Deferr ed: Patient Refused),03/06/2023(Deferred: Patient Refused),03/06/2022(Deferred: Patient Refused),03/06/2021(Deferred: Patient Refused) Pfizer SARS-CoV-2 Monovalent Vaccination (12+ Yrs) PURPLE 09/05/2020,08/01/2020 Surgical History Surgery Date Site/Laterality Comments ORAL SURGERY wisdom tooth and molars LASIK 11/20/2021 Medical History Medical History Date Comments Personal history of other me ntal and behavioral disorders History of bipolar disorder - (Added by ALANA Conv) Personal history of other me ntal and behavioral disorders History of attention deficit hyperactivity disorder - (Added by ALANA Conv) MS (multiple sclerosis) Asthma ADHD (attention deficit hype ractivity disorder) Hyperhidrosis Anxiety Depression Autoimmune disease Family History Medical History Relation Name Comments No Known Problems Brother 1 No Known Problems Brother 2 No Known Problems Father Skin cancer Mother Autism Sister 1 No Known Problems Sister 2 Breast cancer Neg Hx Colon cancer Neg Hx Ovarian cancer Neg Hx Pancreatic cancer Neg Hx Prostate cancer Neg Hx Uterine cancer Neg Hx Relation Name Status Comments Brother 1 Alive Brother 2 Alive Father Alive Mother Alive Sister 1 Alive Sister 2 Alive Social History Tobacco Use Types Packs/Day Years Used Date Smoking Tobacco: Never Smokeless Tobacco: Never Tobacco Cessation:Counseling Given: Not Answered Alcohol Use Standard Drinks/Week Comments Yes 0 (1 standard drink = 0.6 oz pur e alcohol) socially Social Connection and Isolation Panel Answer Date Recorded In a typical week, how many times do you talk on the phone with family, friends, or neighbors? Three times a week 10/10/2024 How often do you get togethe r with friends or relatives? Three times a week 10/10/2024 How often do you attend chur or quaker services? Never 10/10/2024 Do you belong to any clubs o r organizations such as sikhism groups, unions, fraternal or athletic groups, or school groups? No 10/10/2024 How often do you attend meet ings of the clubs or organizations you belong to? Never 10/10/2024 Are you , , di vorced, , never , or living with a partner? 10/10/2024 AUDIT-C Answer Date Recorded Q1: How often do you have a drink containing alcohol? Never 01/05/2024 Q2: How many drinks containi ng alcohol do you have on a typical day when you are drinking? Patient does not drink Q3: How often do you have si x or more drinks on one occasion? Never 01/05/2024 Overall Financial Resource Strain (CARDIA) Answe r Date Recorded How hard is it for you to pa y for the very basics like food, housing, medical care, and heating? Not hard at all 10/10/2024 PHQ-2 Answer Date Recorded PHQ-2 Total Score (If total score is 3 or more points, staff should administer the PHQ-9) 0 10/10/2024 Hunger Vital Sign Answer Date Recorded Within the past 12 months, y ou worried that your food would run out before you got the money to buy more. Never true 10/11/19 25 Within the past 12 months, t he food you bought just didn't last and you didn't have money to get more. Never true 10/10/2024 PRAPARE - Transportation Answer Date Re corded In the past 12 months, has l ack of transportation kept you from medical appointments or from getting medications? No 12/2024 In the past 12 months, has l ack of transportation kept you from meetings, work, or from getting things needed for daily living? No 10/10/2024 Eldorado Depression Scale Answer Date Recorded Eldorado Depression Scale Total 8 12/21/2024 The thought of harming myself has occurred to me . Never 12/21/2024 PHQ-9 Answer Date Recorded PHQ-9 Total Score 0 10/10/2024 Housing Stability Vital Sign Answer Clement e Recorded In the last 12 months, was t here a time when you were not able to pay the mortgage or rent on time? No 10/10/2024 Number of Times Moved in the Last Year Not on fi le 10/10/2024 At any time in the past 12 m [facility], were you homeless or living in a detention (including now)? No 10/10/2024 Personal Safety Answer Date Recorded Have you ever been in or are you currently in a harmful physical or emotional relationship or is someone making you feel afraid or unsafe? Patient unable to answer 10/10/2024 Comments No Sex and Gender Information Value Date Recorded Sex Assigned at Not on file Legal Sex Female 7:42 PM RECRUITING MANAGER Gender Identity Female 11/18/2020 6:40 AM CDT Sexual Orientation Straight 11/18/2020 6: 40 AM CDT Obstetrics History Para Term AB IAB SAB Ectopic Multiple Livin g Live Births 1 1 0 1 0 0 0 0 0 1 1 Date Outcome GA Total Labor Labor/2nd/3rd Weight Sex Type Anes PTL Ines A1 A5 Name Clin 2024 34w 0d 0h 02m 0h 02m 2.06 kg (4 lb 8.7 oz) M C-Sec tion Spinal Livin g 3 6 BoyTif Patricia Ayon MD Delivery Location:[facility] Main C ampus (MHE L AND D PROCEDURE) Comments Age of 1st cycle: 15 Last Filed Vital Signs Vital Sign Reading Time Taken Comments Blood Pressure 120/78 12/21/2024 1:36 PM CDT Pulse 83 10/18/2024 9:52 AM CDT Temperature 36.7 C (98 F) 10/18/2024 9:26 AM CDT Respiratory Rate 20 10/18/2024 9:26 AM CDT Oxygen Saturation 97% 10/18/2024 9:52 AM CDT Inhaled Oxygen Concentration - - Weight 64 kg (141 lb 3.2 oz) 12/21/2024 1:36 PM CDT Height 154.9 cm (5' 0.98) 12/21/2024 1:36 PM CD T Body Mass Index 26.69 12/21/2024 1:36 PM CDT Plan of Treatment Health Maintenance Due Date Last Done Comments DTaP/Tdap/Td Vaccine (1 - Tdap) 09/16/1998 Varicella Vaccines (1 of 2 - 13+ 2-dose series) 09/16/2000 Hepatitis B Screening 09/16/2005 Pneumococcal vaccine <65 (1 of 2 - PCV) 09/16/2006 HPV Vaccines (1 - 3-dose SCD M series) 09/16/2014 Cervical Cancer Screening 03/07/2024 03/07/2023, 07/2022 Covid-19 Vaccine (3 - 2024-2 6 season) 2025 09/05/2020, 08/01/2020 Influenza Vaccine (#1) 2025 Regular Well Visit/Exam 18-64 03/19/2025 03/19/2024, 03/07/2023 Depression Screening 12/21/2025 12/21/2024, 10/10/2024, 10/10/2024, Additional history exists Hepatitis C Screening Completed 05/26/2024 Procedures Procedure Name Priority Date/Time Associated Diagnosis Comments HEPATITIS C ANTIBODY Routine 05/26/2024 9:18 AM RECRUITING MANAGER Encounter for supervision of normal in first trimester, unspecified PAP AND HIGH RISK HPV, REFLEX TO GENOTYPING Routine 03/07/2023 10:26 AM CDT Encounter for well woman exam with routine gynecological exam from Last 3 Months or Most Recently Relevant to Health Maintenance Results * Hepatitis C antibody Blood (05/26/2024 9:18 AM RECRUITING MANAGER) Hep C Ab NON-REACTI VE NON-REACT [facility] Comment: HCV antibody was non-reactive. There is no laboratory evidence of HCV infection. In most cases, no further action is required. However, if recent HCV exposure is suspected, a test for HCV RNA (test code 18684) is suggested. For additional information please refer to http://education.Databanq/faq/UEE15c6 (This link is being provided for informational/ educational purposes only.) Blood 05/26/2024 9:18 AM RECRUITING MANAGER 05/26/2024 9:18 AM RECRUITING MANAGER us Sarah Betancur CNM LAB MICROBIOLOGY - GENERAL ORDERABLES Final Result [facility] [address] [place] [address] * Pap and High Risk HPV and Genotyping (Cytology Component) (03/07/2023 10:26 AM CDT) Thin prep (Pap test) 03/07/2023 10:26 AM CDT 03/09/2023 10:26 AM CDT Narrative PATHOLOGY [facility] - 03/14/2023 4:07 PM CDT [facility] Department of Pathology [address] [place] [address] Final Report with Addendum Note to Patients: This report may contain a detailed description of human tissue sent by a health care provider to the laboratory for pathologic evaluation. The content of this report is essential for diagnosis and may provide important critical findings. This information may be unfamiliar to patients to review without a medical professional present. It is advised that the patient review this report in the presence of a health care provider who can answer questions and explain the details. Patient Name: LINDA MULTANI Address: [address] [place] [address] Gender: F : 1985 (Age: 37) Service: Location: [facility] #: [id number] Patient Type: [facility] SPECIMEN Taken: 03/07/2023 Received: 03/09/2023 Accessioned:: 03/10/2023 Reported: 03/14/2023 Physician(s): Dr. Dottie Rosa M.D. [facility] Diagnosis: SOURCE OF SPECIMEN SCREENING THIN PREP IMAGED PAP w/ HPV: STATEMENT OF ADEQUACY - Specimen satisfactory for evaluation (vaginal pap) GENERAL CATEGORIZATION: - Negative for intraepithelial lesion or malignancy FARIDEH Sauceda(ASCP)FARIDEH Sellers(ASCP) Report Electronically Reviewed and Signed Out By FARIDEH Sellers(ASCP) 03/14/2023 16:07:30Addenda: HPV Test Interpretation (Normal-Negative for High Risk HPV) HPV HR 16 vaginal- Negative HPV HR 18 vaginal- Negative HPV HR non 16/18 vaginal- Negative Comment: The following Other High Risk HPV types were not detected: 31, 33, 35, 39, 45, 51, 52, 56, 58, 59, 66, and 68 ADDITIONAL INFORMATION Testing was performed using the neyda HPV assay ([employer] This test has been modified from the system specialist's instructions. Its performance characteristics were determined by [facility] in a manner consistent with CLIA requirements. This test has not been cleared or approved by the U.S. Food and Drug Administration. Test Performed by: [address] [address] Bucket Pusher: Alex Choi M.D. Ph.D.; CLIA# [id number] FARIDEH Sellers(ASC)Report Electronically Reviewed and Signed Out By IVA SellersASC) 03/14/2023 15:47:24 Specimen(s) Received: A: SCREENING THIN PREP IMAGED PAP w/ HPV Clinical History: Last Menstrual Period: unknown The Pap test is a screening test used to aid in the detection of cervical cancer and its precursors. It should not be the sole means by which malignant and premalignant lesions are diagnosed. Both false negative and false positive results may occur. It also has poor sensitivity for the detection of endometrial lesions and should not be used to evaluate suspected endometrial abnormalities. For these reasons it is most important to obtain Pap tests at regular intervals. The performance characteristics of some immunohistochemical stains, fluorescence in-situ hybridization tests and immunophenotyping by flow cytometry cited in this report (if any) were determined by the Surgical Pathology Department at [facility] as part of an ongoing director of quality improvement program and in compliance with federally mandated regulations drawn from the Clinical Laboratory Improvement Act of 1988 (CLIA '88). Some of these tests rely on the use of analyte specific reagents and are subject to specific labeling requirements by the US Food and Drug Administration. Such diagnostic tests may only be performed in a facility that is certified by the Department of Health and Human Services as a high complexity laboratory under CLIA '88. The FDA has determined that such clearance or approval is not necessary. This test is used for clinical purposes. It should not be regarded as investigational or for research. Nevertheless, federal rules concerning the medical use of analyte specific reagents require that the following disclaimer be attached to the report: This test was developed and its performance characteristics determined by the Surgical Pathology Department [facility]. It has not been cleared or approved by the U. S. Food and Drug Administration. Holley Wren NP LAB CYTOLOGY ORDERABLES Final Result [facility] from Last 3 Months or Most Recently Relevant to Health Maintenance Insurance [employer] Advance Directives For more information, please contact: [phone] * Full Code (Latest Code Status on File) Date Activated Date Inactivated Comments 10/13/2024 5:19 AM 10/16/2024 6:09 PM * Full Code Date Activated Date Inactivated Comments 10/10/2024 5:04 AM 10/13/2024 5:19 AM Care Teams Target Network Analyst Relationship Specialty Start Date End Date Dottie Rosa MD PCP - General Family Medicine 01/27/22
--- OUTSIDE RECORDS SUMMARY | 2025-03-26 00:32 | XMS_ITS | Clinical Summary ---
Author Organization [facility] Address [address] [place] [address] Care Team Providers Care Illuminator Name Role Phone Chanelle Juanito Breanna COLLIER Primary Care Provider [phone] Allergies Active Allergy Reactions Criticality Noted Date Comments Lamotrigine Hives,Rash High 07/07/2015 Medications buPROPion HCl (WELLBUTRIN SR) 150 mg Sustained Release 12 hour tablet 05/03/2015 Active venlafaxine (EFFEXOR XR) 75 mg Extended Release 24 hour capsule 05/12/2015 Active dimethyl fumarate delayed release (TECFIDERA) 240 mg Capsule, Delayed Release(E.C.) 2 times daily.. Active glycopyrrolate (ROBINUL) 1 mg tablet Indications : once a day. Active ARIPiprazole (ABILIFY) 5 mg tablet Take by mouth. Active amphetamine-dext roamphetamine (ADDERALL XR) 10 mg Extended Release 24 hour capsule 06/19/2015 Active Active Problems Problem Noted Date Diagnosed Date Left wrist pain 07/07/2015 Social History Tobacco Use Types Packs/Day Years Used Date Smoking Tobacco: Never Alcohol Use Standard Drinks/Week Comments No 0 (1 standard drink = 0.6 oz pur e alcohol) Comments Unknown Sex and Gender Information Value Date Recorded Sex Assigned at Not on file Legal Sex Female 10:14 AM ELECTRONICS TESTER Gender Identity Not on file Sexual Orientation Not on file Last Filed Vital Signs Vital Sign Reading Time Taken Comments Blood Pressure 127/72 07/07/2015 3:30 PM ELECTRONICS TESTER Pulse 80 07/07/2015 3:30 PM ELECTRONICS TESTER Temperature - - Respiratory Rate - - Oxygen Saturation - - Inhaled Oxygen Concentration - - Weight 56.7 kg (125 lb) 07/07/2015 3:30 PM ELECTRONICS TESTER Height 154.9 cm (5' 1) 07/07/2015 3:30 PM ELECTRONICS TESTER Body Mass Index 23.62 07/07/2015 3:30 PM ELECTRONICS TESTER Plan of Treatment Health Maintenance Due Date Last Done Comments DTAP/TDAP/TD VACCINES (1 - Tdap) 09/16/2006 HEPATITIS B VACCINES (1 of 3 - 19+ 3-dose series) 09/04 HPV/Cotest (21-29) 09/16/2008 HPV VACCINES (1 - 3-dose SCDM series) 09/16/2014 CERVICAL CANCER SCREENING 09/16/2017 HPV/Cotest (30-65) 09/16/2017 PAP SMEAR 09/16/2017 INFLUENZA VACCINE (#1) 2025 [place] [address] [facility] [employer] PPO Care Teams Illuminator Relationship Specialty Start Date End Date Juanito Roca DO PCP - General Family Practice 07/07/15
--- OUTSIDE RECORDS SUMMARY | 2025-03-26 00:32 | XMS_ITS | Encounter Summary ---
Author Organization [facility] Address [address] [place] [address] Care Team Providers Care Radiography Technician Name Role Phone Juanito Roca DO Primary Care Provider [phone] Dottie Rubio MD Primary Care Provider [phone] Encounter Details Date Type Department Care Team (Latest Contact Info) Description 04/11/2018 Abstract [facility] , Pietro Mayen MD Social History Tobacco Use Types Packs/Day Years Used Date Smoking Tobacco: Never Assessed Comments Unknown Sex and Gender Information Value Date Recorded Sex Assigned at Not on file Legal Sex Female 6:23 PM CDT Gender Identity Not on file Sexual Orientation Not on file documented as of this encounter Plan of Treatment Upcoming Encounters Date Type Department Care Team (Late st Contact Info) Description 06/18/2025 2:40 PM NEWSPAPER SUBSCRIPTION SOLICITOR Office Visit [facility] Multispecialty Care - [address], [address] [place] [phone] Kain Roy MD [address] [place], [place] [id number] documented as of this encounter Visit Diagnoses Not on filedocumented in this encounter Care Teams Radiography Technician Relationship Specialty [place] [address] [place] [address] PCP - General 06/21/16 12/16/21 Dottie Rubio MD [address] [place] [address] PCP - General FAMILY PRACTICE 12/17/21 documented as of this encounter
--- OUTSIDE RECORDS SUMMARY | 2025-03-26 00:32 | XMS_ITS | Encounter Summary ---
Author Organization [facility] Address [address] [place] [address] Care Team Providers Care Telephone Assembler Name Role Phone Dottie Rubio MD Primary Care Provider [phone] Encounter Details Date Type Department Care Team (Late st Contact Info) Description 12/18/2021 MyChart Message Enc [facility] Multispecialty Care - [facility] [address] [facility], [address] [place] [phone] Kain Roy MD [address] [place] [address] Blood Work Social History Tobacco Use Types Packs/Day Years Used Date Smoking Tobacco: Never Assessed Alcohol Use Standard Drinks/Week Comments Yes 1.7 (1 standard drink = 0.6 oz p ure alcohol) social Comments Unknown Sex and Gender Information Value Date Recorded Sex Assigned at Not on file Legal Sex Female 6:23 PM CDT Gender Identity Not on file Sexual Orientation Not on file COVID-19 Exposure Response Date Recorded In the last 10 days, have yo u been in contact with someone who was confirmed or suspected to have Coronavirus/COVID-19? No / Unsure 12/17/2021 1:49 PM CDT documented as of this encounter Progress Notes * Colleen Rae RN - 12/22/2021 9:36 AM CDT Please advise if she should do at least the labs insurance will cover or hold on all of them. * Colleen Rae RN - 12/21/2021 4:08 PM CDT Please advise * Colleen Rae RN - 12/21/2021 11:50 AM CDT Please advise. I have attempted to reach quest to find out what they need. Waiting for return call. documented in this encounter Plan of Treatment Upcoming Encounters Date Type Department Care Team (Late st Contact Info) Description 06/18/2025 2:40 PM OFFICE MACHINE EMBOSSOGRAPH OPERATOR Office Visit [facility] Multispecialty Care - [address], [address] [place] [phone] Kain Roy MD [address] [place] [address] documented as of this encounter Visit Diagnoses Not on filedocumented in this encounter Care Teams Telephone Assembler Relationship Specialty Start Date End Date Dottie Rubio MD PCP - General FAMILY PRACTICE 12/17/21 documented as of this encounter
--- OUTSIDE RECORDS SUMMARY | 2025-03-26 00:32 | XMS_ITS | Encounter Summary ---
Author Organization [facility] Address [address] [place] [address] Care Team Providers Care Front End Ui Developer Name Role Phone Dottie Rubio MD Primary Care Provider [phone] Encounter Details Date Type Department Care Team (Late Contact Info) Description 12/24/2021 Curazy Message [employer] INFO [employer], [facility] Provider Patient Amendment Request Social History Tobacco Use Types Packs/Day Years [...] PM CDT documented as of this encounter Plan of Treatment Upcoming Encounters Date Type Department Care Team (Late Contact Info) Description 06/18/2025 2:40 PM HOOP RIVETING MACHINE OPERATOR HELPER Office Visit [facility] Multispecialty Care - [address], [address] [place] [address] Kain Roy MD [address] [place] [address] documented as of this encounter Visit Diagnoses Not on filedocumented in this encounter Care Teams Front End Ui Developer Relationship Specialty Start Date End Date Dottie Rubio MD PCP - General FAMILY PRACTICE 12/17/21 documented as of this encounter
--- OUTSIDE RECORDS SUMMARY | 2025-03-26 00:32 | XMS_ITS | Encounter Summary ---
Author Organization [facility] Address [facility] [place] [address] Care Team Providers Care Manager Plumbing Name Role Phone Dottie Rubio MD Primary Care Provider [phone] Encounter Details Date Type Department Care Team (Late st Contact Info) Description 01/20/2022 MyChart Message Enc [facility] - [address], [address] [place] [address] Kain Roy MD [address] [place] [phone] MRI Results Social History Tobacco Use Types Packs/Day Years [...] st Contact Info) Description 06/18/2025 2:40 PM SERVICE WORKER HELPER Office Visit [facility] - [address], [address] [place] [address] Kain Roy MD [address] [place] [address] documented as of this encounter Visit Diagnoses Not on filedocumented in this encounter Care Teams Manager Plumbing Relationship Specialty Start Date End Date Dottie Rubio MD PCP - General FAMILY PRACTICE 12/17/21 documented as of this encounter
[2025-03-26] MEDS: LACTATED RINGERS 1,000 ML 30 ML IV CONT ×2 (06:40→08:11)
[2025-03-26] MEDS: ACETAMINOPHEN 500 MG TABLET 1000 MG PO (06:45)
[2025-03-26] MEDS: SCOPOLAMINE 1 MG PATCH 1 PATCH TRANSDERM (06:45)
--- NOTE | 2025-03-26 06:59 | WPDANESEPPF ---
Anes - Initial Pre Proc Eval Procedure: Operation Date: 03/26/25 07:30 Proposed Procedures p Excisional Biopsy Right Axillary Accessory Breast Tissue - Ema Cordova MD Date/Time: 03/26/25 06:59 Surgeon: Ema Cordova MD Pre Op Diagnosis: ectopic breast tissue Patient Data Age: 39 Gender: F Height: 1.55 m Weight: 61.8 kg Allergies Allergy/AdvReac Type Severity Reaction Status Date / Time lamotrigine (From Lamictal) AdvReac Severe Rash Verified 03/26/25 06:53 Home Medications ?Medication ?Instructions ?Recorded ?Confirmed ?Type glycopyrrolate 2 mg tablet 2 mg PO ONCE 01/03/25 03/15/25 History (Robinul Forte) sertraline 50 mg tablet (Zoloft) 50 mg PO DAILY 01/03/25 03/15/25 History lisdexamfetamine 40 mg capsule 60 mg PO DAILY 03/14/25 03/15/25 History (Vyvanse) lurasidone 20 mg tablet (Latuda) 20 mg PO DAILY 03/14/25 03/15/25 History sertraline 100 mg tablet (Zoloft) 100 mg PO DAILY 03/14/25 03/15/25 History albuterol 90 mcg/actuation aerosol 2 mcg inhalation .every 4hrs PRN 03/15/25 03/15/25 History inhaler asthma Patient hx anesthesia problems: none Family hx anesthesia problems: none Results Review: All pre-operative results and documents have been reviewed as part of the pre-operative evaluation. [facility] Past Medical History Medical History (Updated 03/26/25 @ 06:59 by Tiburcio Burris MD) Asthma Multiple sclerosis Social History Social History (Updated 01/03/25 @ 14:01 by Eloisa Dominguez CMA) Smoking status: Never smoker Alcohol intake: current Substance use: never Do You Feel Safe in your Home?: Yes Lack of Transportation: No Lack of Food: Never True Current Housing: I Have Housing Concerned About Future Housing: No Difficulty Paying Gas/Electric Bills: No Difficulty Paying for Meds: No Currently Unemployed: No Education: Associate Degree Difficulty w/ Childcare or Family Care: No Anes - Eval Final PreProcedure Day of Procedure 03/26/25 06:59 Patient weight: normal Heart: regular rate and rhythm Lungs: clear to auscultation Airway: Mallampati scale class II Neurological: alert and oriented Last oral intake: >/= 8 hours ASA classification: II Emergent: no Anesthetic plan: proceed Anesthesia type and monitoring: general LMA and standard monitoring Results Review: All pre-operative results and documents have been reviewed as part of the pre-operative evaluation. Informed Consent: The patient's anesthetic plan and its attendant risks and benefits were discussed with the patient/family/POA. Questions were solicited and answers provided to the satisfaction of the patient/family/POA.
[2025-03-26 07:03] LABS: BEDSIDEPREGUCG Negative (Negative)
--- NOTE | 2025-03-26 07:05 | WPDHPUPDATE1 ---
History and Physical Update Update Date/Time: 03/26/25 07:05 - Excisional biopsy of right axillary accessory breast tissue. History and Physical has been reviewed, including an updated exam of the patient. There are NO changes in the patient's condition. Risks, benefits, and alternatives have been discussed and questions answered. Patient agrees to proceed with procedure.
[2025-03-26] MEDS: ceFAZolin 2 GM in SODIUM CHLORIDE 0.9% IV 50 ML 100 ML IVPB (07:21)
[2025-03-26] MEDS: LIDOCAINE 1% LOCAL INJ 10 ML VIAL 5 ML INFILTRATE (07:43)
[2025-03-26] MEDS: BUPIVACAINE/EPINEPHRINE 0.5% 50 ML VIAL INFILTRATE (07:44)
--- NOTE | 2025-03-26 07:50 | S_PTH ---
PATIENT: Linda Multani LOC: [facility] U#:[id number] AGE/SX: 39/F ROOM: RE03/26/[address]: Ema Cordova MD : 1985 BED: DIS: 03/26/2025 SPEC #: [id number] RECD: 03/26/25 08:40 STATUS: SWETHA REQ #: [id number] CLARITZA: 03/26/25 07:[address]: Ema Cordova DEPT: [facility] Surgical RECD BY: Anibal Pina ENTERED: 03/26/25 08:40 SP TYPE: Surgical OTHR DR: Dottie RosaMD Tissues: A - Breast Tissue Procedures: Hematoxylin and Eosin Stain Gross and Microscopic Level 4
--- NOTE | 2025-03-26 08:04 | W.PM.PROC2 ---
Procedure Note - Detailed Date of Procedure 03/26/25 Pre-op Diagnosis ectopic breast tissue Post-op Diagnosis Same Procedure Performed Excisional biopsy of accessory breast tissue in right axilla Surgeon Ema Cordova MD Anesthesia MAC Description of Procedure Patient was identified in the preoperative holding area brought to the operating room suite. She was laid supine in the OR table sequential compression devices were applied. Anesthesia was induced without difficulty. The right axillary area was prepped and draped in the sterile fashion. A small incision was made overlying the area of swelling in the axilla and dissection was carried down through the dermis into the superficial accessory breast tissue. This was excised and bloc and sent to pathology as a permanent specimen. The cavity was irrigated with saline hemostasis was assured. The deep dermal layer was then closed with interrupted 3-0 Vicryl followed by 4-0 Monocryl in a subcuticular fashion for the skin. Dermabond was applied followed by Steri-Strips and a compression dressing. Patient was awoken from anesthesia and taken to the recovery area in stable condition. All needles, instruments, sponge counts were correct as reported by the operating room staff. Patient tolerated the procedure well with no immediate complications. Estimated Blood Loss 3 Pathology Yes Complications No immediate complications Condition Stable Disposition PACU [facility] Billing Surgery - Charge Forward: Surgery Billing (CPT 22336)
== END 2025-03-26 09:51 | disposition home or self-care (01) ==
PROVIDERS: PCP Family Medicine; Visit Provider Surgery
PROC: (CPT 19120; principal; 2025-03-26 07:30)
DX: Q83.1 Accessory breast (principal)
CPT/HCPCS: 19120; 88305; J0690; A9270; J1100; J2003; J2250; J2405; J2704; J3010; J7120; Q9968